=== PATIENT | male | born 1975 | race American Indian/Alaskan Native ===

== ENCOUNTER 2016-10-29 18:29 | Emergency (ER) | payer BC, OTHER ==
[~2016-10-29] VITALS: Ht 180.3 cm; Wt 81.7 kg
[~2016-10-29 18:29] MED LIST: CLARITIN10 MG PO; FLOMAX0.4 MG PO; FLONASE2 SPRAY NS; IBUPROFEN600 MG PO; NORCO 5-325 TA1 EACH PO; PERCOCET 5-3251 EACH PO; PYRIDIUM200 MG PO
[2016-10-29] MEDS ORDERED: ARTIFICIAL TEAR15 M1 OPTH (18:48)
[2016-10-29] MEDS ORDERED: TRAMADOL HCL50 MG PO (20:02)
== END 2016-10-29 20:10 | disposition home or self-care (01) ==
LOC: ED 18:29
DX: S20.211A Contusion of right front wall of thorax, initial encounter (principal); M25.512 Pain in left shoulder; M25.522 Pain in left elbow; M25.532 Pain in left wrist; I10 Essential (primary) hypertension; Z87.442 Personal history of urinary calculi; Z87.891 Personal history of nicotine dependence; Z88.7 Allergy status to serum and vaccine; Z79.51 Long term (current) use of inhaled steroids; Y08.89XA Assault by other specified means, initial encounter
CPT/HCPCS: 71020; 73030; 73080; 73110; 81001; 99283

== ENCOUNTER 2020-05-14 08:51 | Emergency (ER) | payer OTHER ==
[~2020-05-14] VITALS: Ht 180.3 cm; Wt 81.6 kg
[~2020-05-14 08:51] MED LIST changes: +ARTIFICIAL TEAR15 M1 OPTH; +CEPHALEXIN500 MG PO; +TRAMADOL HCL50 MG PO
== END 2020-05-14 10:24 | disposition home or self-care (01) ==
LOC: ED 08:51
DX: J02.9 Acute pharyngitis, unspecified (principal); I10 Essential (primary) hypertension; Z87.891 Personal history of nicotine dependence; Z88.7 Allergy status to serum and vaccine; Z79.899 Other long term (current) drug therapy; Z20.822 Contact with and (suspected) exposure to COVID-19
CPT/HCPCS: 87081; 87880; 99283; C9803; U0003

== ENCOUNTER 2020-09-24 09:36 | Emergency (ER) | payer OTHER ==
[~2020-09-24] VITALS: Ht 180.3 cm; Wt 79.4 kg
[2020-09-24] MEDS ORDERED: HYDROCODON-ACE1 EA11 PO (11:47)
== END 2020-09-24 12:05 | disposition home or self-care (01) ==
LOC: ED 09:36
DX: S30.1XXA Contusion of abdominal wall, initial encounter (principal); S20.211A Contusion of right front wall of thorax, initial encounter; W22.8XXA Striking against or struck by other objects, initial encounter; I10 Essential (primary) hypertension; F17.200 Nicotine dependence, unspecified, uncomplicated; Z88.7 Allergy status to serum and vaccine; Z79.899 Other long term (current) drug therapy
CPT/HCPCS: 71101; 74177; 80053; 81001; 85025; 99284-25; A9270; J2930; J7030; Q9967